=== PATIENT | female | born 1980 | race Caucasian/White ===

== ENCOUNTER 2023-09-19 16:39 | Outpatient (CLI) | payer OTHER, SELFPAY ==
[2023-09-19 23:23] LABS: Chlamydia DNA Amplified* NOT DETECTED (No Detected); GC DNA Amplified* NOT DETECTED (No Detected)
== END 2023-09-19 16:40 | disposition home or self-care (01) ==
LOC: LKVREF 16:39
PROVIDERS: Visit Provider Physician Assistant Medical
DX: Z11.3 Encounter for screening for infections with a predominantly sexual mode of transmission (principal)
CPT/HCPCS: 87491; 87591

== ENCOUNTER 2023-10-17 08:56 | Outpatient (CLI) | payer OTHER, SELFPAY | END 2023-10-17 08:57 | disposition home or self-care (01) | LOC: NFLDREF 10-18 08:09 | PROVIDERS: Visit Provider Physician Assistant Medical | DX: Z00.00 Encounter for general adult medical examination without abnormal findings (principal); Z13.6 Encounter for screening for cardiovascular disorders; Z11.59 Encounter for screening for other viral diseases; Z11.3 Encounter for screening for infections with a predominantly sexual mode of transmission | CPT/HCPCS: 80053; 80061; 86703; 86803 ==

== ENCOUNTER 2024-01-10 09:02 | Outpatient (CLI) | payer OTHER, SELFPAY ==
--- NOTE | 2024-01-10 10:15 | MM_ITS ---
Patient: BLU SIMONS Facility:?[facility] Patient ID:?[id number] Site Patient ID:?[id number]. Site :?[id number] Study:?XRay-Breast Bilateral 3D W/CAD-01/10/2024 11:46:28 AM Ordering Physician:Richard Final Report: BILATERAL SCREENING MAMMOGRAM WITH COMPUTER-AIDED DETECTION AND TOMOSYNTHESIS TECHNIQUE: CC and MLO views were obtained. These mammographic images have been obtained using full-field digital technique. These mammographic images were interpreted with the benefit of computer-aided detection. Breast Tomosynthesis was used in this interpretation. COMPARISON FILM: Baseline. FINDINGS: The breasts are extremely dense, which lowers the sensitivity of mammography. IMPRESSION: There is no radiographic evidence for malignancy. ASSESSMENT: BI-RADS Category 1: Negative RECOMMENDATION: Routine screening mammogram in 1 year. A lay language report of this examination will be provided to the patient. Brian Peñaloza M.D. Diagnostic Radiologist [email or web address] DSM/sp R& Transcribed: 3:25 p.m. SP/Dictated by: Brian Peñaloza MD @ 01/10/2024 12:25:00 PM Signed by:?Brian Peñaloza MD @01/10/2024 3:37:58 PM (Electronic Signature)
== END 2024-01-10 09:03 | disposition home or self-care (01) ==
LOC: MAMMO 09:02
PROVIDERS: Visit Provider Physician Assistant Medical
DX: Z12.31 Encounter for screening mammogram for malignant neoplasm of breast (principal); R92.2 Inconclusive mammogram
CPT/HCPCS: 77063; 77067